=== PATIENT | female | born 1965 | race Caucasian/White ===

== ENCOUNTER 2016-10-30 10:20 | Day surgery (SDC) | payer OTHER ==
[~2016-10-30] VITALS: Ht 152.4 cm; Wt 81.6 kg
[2016-10-30] VITALS (16 sets, daily range): BP systolic 104–147; BP diastolic 54–89; PULSE 56–67; RESP 13–18; Ht 152.4 cm; Wt 81.6 kg
[~2016-10-30 10:20] MED LIST: DICY20TA56; NORG1TAB30
[2016-10-30] MEDS ORDERED: LEVO25TA50 PO (10:59)
--- NOTE | 2016-10-30 11:28 | RADRPT ---
PROCEDURE: XR Chest. CLINICAL INDICATION: Preop, thigh mass TECHNIQUE: AP view of the chest was obtained. COMPARISON: None. FINDINGS: The cardiomediastinal silhouette is within normal limits. The lungs are clear. No pleural effusion or pneumothorax is identified. Visualized osseous structures appear intact. IMPRESSION: No evidence of active cardiopulmonary disease. RPTAT: VV .Javier Torres MD, Date Time Electronically viewed and signed by .Javier Torres MD, on 10/30/2016 11:28 .O/
[2016-10-30] MEDS ORDERED: CEFAZOLIN 2 GM/50 ML (PMX) 50 ML IVPB SCH (12:00)
[2016-10-30] MEDS ORDERED: SOD CHLORIDE 0.9% 1,000 ML IV SCH (12:00)
[2016-10-30] MEDS ORDERED: BUPIVACAINE 0.25% (MPF) 30 ML INJ ONE (13:58)
[2016-10-30] MEDS ORDERED: MEPERIDINE 100 MG INJ ONE (14:09)
[2016-10-30] MEDS ORDERED: PROPOFOL 20 ML ONE (14:09)
[2016-10-30] MEDS ORDERED: LIDOCAINE 2% (SDV) 5 ML INJ ONE (14:09)
[2016-10-30] MEDS ORDERED: CEFAZOLIN 1 GM INJ ONE (14:12)
[2016-10-30] MEDS ORDERED: METOCLOPRAMIDE 10 MG INJ ONE (14:12)
[2016-10-30] MEDS ORDERED: ONDANSETRON 4 MG INJ ONE (14:12)
[2016-10-30] MEDS ORDERED: MEPERIDINE 25 MG INJ IV PRN (14:30)
[2016-10-30] MEDS ORDERED: EPHEDrine SULFATE 50 MG/5 ML SYG IV PRN (14:30)
[2016-10-30] MEDS ORDERED: HYDROmorphONE (0.2 MG/ML) 10ML SYG IV PRN ×3 (14:30)
[2016-10-30] MEDS ORDERED: DIPHENHYDRAMINE 50 MG INJ IV PRN (14:30)
[2016-10-30] MEDS ORDERED: LABETALOL HCL 20MG INJ IV PRN (14:30)
[2016-10-30] MEDS ORDERED: OXYCODONE/ACETAMINOPHEN (5/325) TAB PO PRN ×2 (14:30)
[2016-10-30] MEDS ORDERED: hydrALAzine 20 MG INJ IV PRN (14:30)
[2016-10-30] MEDS ORDERED: FENTAnyl 50 MCG/ML VIAL IV PRN ×3 (14:30)
[2016-10-30] MEDS ORDERED: ONDANSETRON 4 MG INJ IV PRN (14:30)
[2016-10-30] MEDS ORDERED: MIDAZOLAM 1 MG/ML 2 ML INJ IV PRN (14:30)
[2016-10-30] MEDS ORDERED: METOCLOPRAMIDE 10 MG INJ IV PRN (14:30)
--- NOTE | 2016-10-30 14:51 | OPR ---
Date/Time of Note Date/Time of Note DATE: 10/30/16 TIME: 14:47 Operative Report Procedure Date: Oct 30, 2016 Preoperative Diagnosis right arm mass left leg mass left flank mass Postoperative Diagnosis same Operation Performed 1. excision of right arm mass 2 cm mass 2 cm incision 2. excision of left leg mass 3 cm mass 3 cm incision 3. excision of left flank mass 4 cm mass 8 cm incision 4. localized adjacent tissue transfer with the use of skin flaps 26 sq cm defect 5. therapeutic injection of subcutaneous marcaine cpt code 47291 Surgeon: Thomas SMITH Anesthesia Type: general Estimated Blood Loss: 0 - 10 ml's Specimens right elbow mass left leg mass left flank mass Grafts/Implants: none Complications: no Indications This is a 51-year-old female with a right arm mass left leg mass in the left flank mass. She requests surgical excision. Risks alternatives benefits personally discussed the patient. Patient expressed understanding and consents to the operation. Procedure Description Patient was taken to the OR and prepped and draped in usual sterile fashion. Surgical timeout was performed. IV antibiotics given. Right elbow mass is addressed with a transverse incision with a 15 blade. Dissection cautery was carried down to the mass and circumferentially excised. Due to the tissue defect localized adjacent tissue transfer with the skin flap was performed multilayer closure with interrupted 3-0 Vicryl and skin enrrique. There appears to contains Marcaine is injected throughout the site and dry dressings were applied attention was then paid to the left leg mass. Transverse incision was made with a 15 blade. Dissection cautery was carried down to the mass is located in the superior anterior leg. Mass is excised. There is good hemostasis. Due to tissue defect localizations associated with these of skin flaps were performed for multilayer closure with interrupted Vicryl and skin enrrique. Therapeutic subcutaneous Marcaine was injected throughout the incision and dry dressings applied. Attention was then paid to the left flank mass. 10 blade is used to make an incision. Dissection Carrs guidance the mass. The mass is excised with cautery. His good hemostasis due to large tissue defect localized adjacent to transferred to the skin flaps were performed multilayer closure was injected through Vicryl and skin enrrique. Therapeutic 60s Marcaine was injected throughout the site dry dressings were applied. Thomas SMITH Oct 30, 2016 14:51
[2016-10-30] MEDS ORDERED: HYDROCODONE/APAP (5/325) TAB PO ONE (15:00)
--- NOTE | 2016-10-31 11:12 | RADRPT ---
Vent Rate: 63 bpm RR Interval: 0 msec NV Interval: 160 msec QRS Duration: 82 msec QT Interval: 408 msec QTC Interval: 417 msec P-R-T [place]: 45 - 43 - 44 degrees Normal sinus rhythm Cannot rule out Anterior infarct , age undetermined Abnormal ECG Electronically Signed By: George Merino [id number]
== END 2016-10-30 16:44 | disposition home or self-care (01) ==
LOC: SDS 10:20
PROVIDERS: ATTEND Surgery
DX: D17.24 Benign lipomatous neoplasm of skin and subcutaneous tissue of left leg (principal); D17.21 Benign lipomatous neoplasm of skin and subcutaneous tissue of right arm; D17.1 Benign lipomatous neoplasm of skin and subcutaneous tissue of trunk; E03.9 Hypothyroidism, unspecified; E66.9 Obesity, unspecified; Z68.35 Body mass index [BMI] 35.0-35.9, adult
CPT/HCPCS: 14021; 71010; 88307; 93005; J0690; J2175; J2405; J2765; Z7512; Z7610